=== PATIENT | female | born 1975 | race African-American/Black ===

== ENCOUNTER 2017-02-18 04:04 | Emergency (ER) | payer OTHER ==
[~2017-02-18] VITALS: Ht 172.7 cm; Wt 93.0 kg
[2017-02-18] MEDS ORDERED: CARVEDILOL12.5 MG PO (04:22)
[2017-02-18 04:58] LABS: URINE BILIRUBIN NEGATIVE (Negative); URINE BLOOD 1+ (Negative); URINE COLOR YELLOW; URINE GLUCOSE-RANDOM* NEGATIVE (Negative); URINE KETONES NEGATIVE (Negative); URINE LEUKOCYTES-REFLEX NEGATIVE (Negative); URINE PROTEIN (DIPSTICK) TRACE (Negative); URINE SPECIFIC GRAVITY 1.015 (1.003-1.035); URINE UROBILINOGEN 0.2 E.U./dl (0.2-1.0)
[2017-02-18 05:06] LABS: SQUAMOUS 0-3 Few /LPF (0-3)
[2017-02-18 05:07] LABS: CRYSTALS None Seen /LPF (None Seen); TRANSITIONAL EPITHEL CELL 4-10 Moderate /LPF (None Seen); URINE RBC 0-2 Rare /HPF (0-2); URINE WBC-REFLEX 0-5 Rare /HPF (0-5)
[2017-02-18 05:17] LABS: ABSOLUTE NEUTROPHILS 4.6 thou/uL (1.4-8.2); BASOPHILS 0.5 % (0.0-2.0); EOSINOPHILS 2.5 % (0.0-3.0); HEMATOCRIT 45.8 % (37.0-47.0); LYMPHOCYTES 40.4 % (24.0-44.0); MCH 33.2 pg (26.0-34.0); MCHC 34.9 g/dL (28.0-37.0); MCV 95.3 fL (80.0-100.0); MONOCYTES 6.9 % (1.0-8.0); PLATELET COUNT 275 thou/uL (150-400); POLYS 49.7 % (36.0-66.0); RDW 13.6 % (10.5-14.5); WBC 9.3 thou/uL (4.0-11.0)
[2017-02-18 05:20] LABS: MANUAL DIFF NO
[2017-02-18 05:22] LABS: CALCIUM 9.5 mg/dL (8.5-10.1); CREATININE 0.8 mg/dL (0.6-1.0); POTASSIUM 3.8 mmol/L (3.5-5.1)
[2017-02-18 05:26] LABS: ALBUMIN 3.6 g/dL (3.4-5.0); TOTAL BILIRUBIN 0.2 mg/dL (<0.1-1.0); TOTAL PROTEIN 7.1 g/dL (6.4-8.2)
[2017-02-18] MEDS ORDERED: NAPROSYN500 MG PO ×2 (06:03→08:35)
[2017-02-18] MEDS ORDERED: DOXYCYCLINE 10100 MG PO ×2 (06:03→08:35)
[2017-02-18] MEDS ORDERED: TRAMADOL 50 MG50 MG PO ×2 (06:03→08:35)
[2017-02-18 09:15] VITALS: BP 166/92
[2017-02-19 18:10] LABS: CHLAMYDIA TRACHOMATIS-PCR Negative (Negative); NEISSERIA GONORRHEA-PCR Negative (Negative)
== END 2017-02-18 06:16 | disposition home or self-care (01) ==
LOC: ER 04:04
PROVIDERS: Emergency Medicine
DX: N73.9 Female pelvic inflammatory disease, unspecified (principal); I10 Essential (primary) hypertension; F17.210 Nicotine dependence, cigarettes, uncomplicated; F10.99 Alcohol use, unspecified with unspecified alcohol-induced disorder; F12.10 Cannabis abuse, uncomplicated